=== PATIENT | female | born 1995 | race Caucasian/White ===

== ENCOUNTER → 2016-10-29 | Outpatient (CLI) | payer BC, OTHER | LOC: MW.CHOBGYN 13:36 | PROVIDERS: ATTEND Nurse Practitioner Women's Health | DX: Z32.00 Encounter for pregnancy test, result unknown (principal) | CPT/HCPCS: 36415; 84702 ==

== ENCOUNTER 2017-07-12 11:48 | Inpatient (IN) | payer MEDICAID ==
[2017-07-12] MEDS ORDERED: Nalbuphine 10 MG/1 ML Vial IVPUSH PRN (16:55)
[2017-07-12] MEDS ORDERED: Sodium Chloride 0.9% 2.5 ML Syringe FLUSH PRN (16:55)
[2017-07-12] MEDS ORDERED: Carboprost Tromethamine 250 MCG/1 ML Amp IM PRN (16:55)
[2017-07-12] MEDS ORDERED: Sodium Chloride 0.9% 10 ML Syringe FLUSH PRN (16:55)
[2017-07-12] MEDS ORDERED: Lidocaine 1% 50 ML MDV INJECT PRN (16:55)
[2017-07-12] MEDS ORDERED: Butorphanol 1 MG/ML SDV IVPUSH PRN (16:55)
[2017-07-12] MEDS ORDERED: Water For Irrigation,Sterile 1,000 ML Container IRR PRN (16:55)
[2017-07-12] MEDS ORDERED: Methylergonovine 0.2 MG/1 ML Amp IM PRN (16:55)
[2017-07-12] MEDS ORDERED: Misoprostol 200 MCG Tab PO PRN (16:55)
[2017-07-12] MEDS ORDERED: Oxytocin/0.9 % Sodium Chloride 30 UNIT/500 ML BAG IV SCH ×2 (17:00→21:15)
--- NOTE | 2017-07-12 17:31 | PCM.LDHP ---
L&D History of Present Illness - General Date of Service: 07/12/17 Admit Problem/Dx: Patient Status Order with Admit Dx/Problem 07/12/17 12:22 Patient Status [ADT] Routine 07/12/17 16:55 Patient Status [ADT] Routine Admission Diagnosis/Problem Admission Diagnosis/Problem 07/12/17 17:24 22yo EDC 07/11/2017 40 1/7wks. O+, IR, GBS pos. PCN allergy. Active labor Source of Information: Patient History Limitations: Reports: No Limitations - History of Present Illness Improves with: Reports: None Worsens with: Reports: None Associated Symptoms: Reports: N - Related Data Allergies/Adverse Reactions: Allergies Allergy/AdvReac Type Severity Reaction Status Date / Time amoxicillin Allergy Rash Verified 05/13/16 12:44 Home Medications: Home Meds . 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: Neurological History: Reports: Migraines - Past Surgical History GI Surgical History: Reports: Appendectomy, Cholecystectomy Social & Family History - Family History Family Medical History: Noncontributory - Tobacco Use Smoking Status *Q: Current Every Day Smoker Years of Tobacco use: 7 Packs/Tins Daily: 1 - Recreational Drug Use Recreational Drug Use: No H&P Review of Systems - Review of Systems: Review Of Systems: See Below General: Reports: No Symptoms HEENT: Reports: No Symptoms Pulmonary: Reports: No Symptoms Cardiovascular: Reports: No Symptoms Gastrointestinal: Reports: No Symptoms Genitourinary: Reports: No Symptoms Musculoskeletal: Reports: No Symptoms Skin: Reports: No Symptoms Psychiatric: Reports: No Symptoms Neurological: Reports: No Symptoms Hematologic/Lymphatic: Reports: No Symptoms Immunologic: Reports: No Symptoms L&D Exam - Exam Exam: See Below - Vital Signs Weight: 99.337 kg - OB Specific Fundal Height In cm: 40 Contraction Intensity: Strong Movement: Active Heart Tones: Present Heart Rate (FHR) Variability: Moderate (6-25 bmp) Presentation: Vertex - Exam General: Alert, Oriented, Cooperative HEENT: Hearing Intact Lungs: Normal Respiratory Effort GI/Abdominal Exam: Soft, Non-Tender, No Organomegaly, No Distention (gravid) Rectal Exam: Deferred Genitourinary: Cervical dilitation Back Exam: Full Range of Motion Extremities: Normal Range of Motion, No Pedal Edema, Normal Capillary Refill Skin: Warm, Dry, Intact Neurological: Reflexes Equal Bilateral, Normal Speech, Normal Tone Psychiatric: Alert, Normal Affect, Normal Mood - Problem List (1) Supervision of normal IUP (intrauterine ) in primigravida SNOMED Code(s): 28377015, 011320324, 839462491 ICD Code: Z34.00 - ENCNTR FOR SUPRVSN OF NORMAL FIRST , UNSP TRIMESTER Status: Acute Current Visit: Yes Qualifiers: Trimester: third trimester Qualified Code(s): Z34.03 - Encounter for supervision of normal first , third trimester Problem List Initiated/Reviewed/Updated: Yes Orders Last 24hrs: Active Orders 24 hr Category Date Time Status Patient Status [ADT] Routine ADT 07/12/17 16:55 Active Heart Tones [RC] CONTINUOUS Care 07/12/17 16:55 Active Non Stress Test [RC] PER UNIT ROUTINE Care 07/12/17 12:22 Active Non Stress Test [RC] PER UNIT ROUTINE Care 07/12/17 16:55 Active May Shower [RC] ASDIRECTED Care 07/12/17 16:55 Active Notify Provider [RC] PRN Care 07/12/17 16:55 Active Up ad Indira [RC] ASDIRECTED Care 07/12/17 12:22 Active Up ad Indira [RC] ASDIRECTED Care 07/12/17 16:55 Active Vaginal Exam [RC] Click to Edit Care 07/12/17 12:22 Active Vaginal Exam [RC] PRN Care 07/12/17 16:55 Active Vital Signs [RC] PER UNIT ROUTINE Care 07/12/17 12:22 Active Vital Signs [RC] PER UNIT ROUTINE Care 07/12/17 16:55 Active CBC W/O DIFF,HEMOGRAM [HEME] Routine Lab 07/12/17 16:55 Ordered TYPE AND SCREEN [BBK] Routine Lab 07/12/17 16:55 Ordered Butorphanol [Stadol] Med 07/12/17 16:55 Active 1 mg IVPUSH Q1H PRN Carboprost Tromethamine [Hemabate DS] Med 07/12/17 16:55 Active 250 mcg IM ASDIRECTED PRN Clindamycin Phosphate in D5W [Cleocin in D5W] 900 mg Med 07/12/17 17:00 Active Premix Bag 1 bag IV Q8H Lactated Ringers [Ringers, Lactated] 1,000 ml Med 07/12/17 17:00 Active IV ASDIRECTED Lidocaine 1% [Xylocaine 1%] Med 07/12/17 16:55 Active 50 ml INJECT .ONCE PRN Methylergonovine [Methergine] Med 07/12/17 16:55 Active 0.2 mg IM ASDIRECTED PRN Misoprostol [Cytotec] Med 07/12/17 16:55 Active 200 mcg PO .ONCE PRN Nalbuphine [Nubain] Med 07/12/17 16:55 Active 10 mg IVPUSH Q1H PRN Oxytocin/0.9 % Sodium Chloride [Oxytocin 30 Unit/500 ML Med 07/12/17 17:00 Active -NS] 30 unit in 500 ml IV TITRATE Sodium Chloride 0.9% [Saline Flush] Med 07/12/17 16:55 Active 10 ml FLUSH ASDIRECTED PRN Sodium Chloride 0.9% [Saline Flush] Med 07/12/17 16:55 Active 2.5 ml FLUSH ASDIRECTED PRN Water For Irrigation,Sterile [Sterile Water for Med 07/12/17 16:55 Active Irrigation] 1,000 ml IRR ASDIRECTED PRN Scalp Electrode [WOMSER] Per Unit Routine Oth 07/12/17 16:55 Ordered Peripheral IV Insertion Adult [OM.PC] Routine Oth 07/12/17 16:55 Ordered Resuscitation Status Routine Resus Stat 07/12/17 12:22 Ordered Medication Orders Butorphanol Tartrate (Stadol) 1 mg IVPUSH Q1H PRN PRN Reason: Pain Carboprost Tromethamine (Hemabate Ds) 250 mcg IM ASDIRECTED PRN PRN Reason: Post Hemorrhage Lactated Ringer's (Ringers, Lactated) 1,000 mls @ 150 mls/hr IV ASDIRECTED BRI Oxytocin/Sodium Chloride (Oxytocin 30 Unit/500 Ml-Ns) 30 unit in 500 mls @ 999 mls/hr IV TITRATE BRI Clindamycin Phosphate 900 mg/ (Premix) 50 mls @ 100 mls/hr IV Q8H BRI Lidocaine HCl (Xylocaine 1%) 50 ml INJECT .ONCE PRN PRN Reason: Laceration repair Methylergonovine Maleate (Methergine) 0.2 mg IM ASDIRECTED PRN PRN Reason: Post Hemorrhage Misoprostol (Cytotec) 200 mcg PO .ONCE PRN PRN Reason: Post Hemorrhage Nalbuphine HCl (Nubain) 10 mg IVPUSH Q1H PRN PRN Reason: Pain (severe 7-10) Sodium Chloride (Saline Flush) 10 ml FLUSH ASDIRECTED PRN PRN Reason: Keep Vein Open Sodium Chloride (Saline Flush) 2.5 ml FLUSH ASDIRECTED PRN PRN Reason: Keep Vein Open Sterile Water (Sterile Water For Irrigation) 1,000 ml IRR ASDIRECTED PRN PRN Reason: delivery Assessment/Plan Comment:: Labor A: 22yo EDC 07/11/2017 40 1/7wks. O+, IR, GBS pos. PCN allergy. Active labor P: Admit, epidural prn, treat GBS with clindomycin due to PCN allergy. Anticipate . Dr Merritt updated on pt status
[2017-07-12] MEDS: Lactated Ringers 1,000 ML IV SCH ×2 (17:34→20:43)
[2017-07-12] MEDS: Clindamycin Phosphate in D5W 900 MG in Premix Bag 1 BAG IV SCH ×2 (17:34)
[2017-07-12] MEDS ORDERED: Ropivacaine 0.2% 2 MG/ML 20 ML SDV ONE (20:43)
[2017-07-12] MEDS ORDERED: fentaNYL 100 MCG/2 ML SDV ONE (20:43)
[2017-07-12] MEDS ORDERED: Ropivacaine 100 ML ONE (20:43)
[2017-07-12] MEDS ORDERED: Terbutaline 1 MG/ML SDV SUBCUT PRN (21:06)
--- NOTE | 2017-07-12 21:18 | PCM.PREANE ---
Preanesthetic Assessment - Procedure Proposed Procedure: labor epidural - Anesthesia/Transfusion/Family Hx Anesthesia History: Prior Anesthesia Without Reaction (lap mike, appendectomy) Family History of Anesthesia Reaction: No Transfusion History: No Prior Transfusion(s) - Review of Systems General: No Symptoms Pulmonary: No Symptoms Cardiovascular: No Symptoms Gastrointestinal: No Symptoms Neurological: No Symptoms Other: Reports: None - Physical Assessment NPO Status Date: 07/12/17 NPO Status Time: 21:17 (cl liq) Height: 1.6 m Weight: 99.337 kg ASA Class: 2 Mental Status: Alert & Oriented x3 Airway Class: Mallampati = 2 Dentition: Reports: Normal Dentition Thyro-Mental Finger Breadths: 3 Mouth Opening Finger Breadths: 3 ROM/Head Extension: Full Lungs: Clear to Auscultation, Normal Respiratory Effort Cardiovascular: Regular Rate, Regular Rhythm - Lab Values: Laboratory Last Values WBC 11.89 K/uL (4.0-11.0) H 07/12/17 17:20 RBC 4.09 M/uL (4.30-5.90) L 07/12/17 17:20 Hgb 12.5 g/dL (12.0-16.0) 07/12/17 17:20 Hct 36.2 % (36.0-46.0) 07/12/17 17:20 MCV 88.5 fL (80.0-98.0) 07/12/17 17:20 MCH 30.6 pg (27.0-32.0) 07/12/17 17:20 MCHC 34.5 g/dL (31.0-37.0) 07/12/17 17:20 RDW Std Deviation 42.2 fl (28.0-62.0) 07/12/17 17:20 RDW Coeff of Humza 13 % (11.0-15.0) 07/12/17 17:20 Plt Count 186 K/uL (150-400) 07/12/17 17:20 MPV 11.10 fL (7.40-12.00) 07/12/17 17:20 Nucleated RBC % 0.0 /100WBC 07/12/17 17:20 Nucleated RBCs # 0 K/uL 07/12/17 17:20 Blood Type O POSITIVE 07/12/17 17:20 Antibody Screen NEGATIVE 07/12/17 17:20 - Allergies Allergies/Adverse Reactions: Allergies Allergy/AdvReac Type Severity Reaction Status Date / Time amoxicillin Allergy Rash Verified 05/13/16 12:44 - Blood Blood Available: Yes Product(s) Available: PRBC - Anesthesia Plan Pre-Op Medication Ordered: None - Acknowledgements Anesthesia Type Planned: Epidural Pt an Appropriate Candidate for the Planned Anesthesia: Yes Alternatives and Risks of Anesthesia Discussed w Pt/Guardian: Yes Pt/Guardian Understands and Agrees with Anesthesia Plan: Yes PreAnesthesia Questionnaire Gastrointestinal History: Reports: Cholelithiasis Genitourinary History: Reports: None 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 [No Known Home Meds] 01/21/16 [History] - CURRENT (IN HOUSE) MEDS Current Meds: Current Medications Butorphanol Tartrate (Stadol) 1 mg IVPUSH Q1H PRN PRN Reason: Pain Carboprost Tromethamine (Hemabate Ds) 250 mcg IM ASDIRECTED PRN PRN Reason: Post Hemorrhage Lactated Ringer's (Ringers, Lactated) 1,000 mls @ 150 mls/hr IV ASDIRECTED [facility] Last Admin: 07/12/17 20:43 Dose: 150 mls/hr Oxytocin/Sodium Chloride (Oxytocin 30 Unit/500 Ml-Ns) 30 unit in 500 mls @ 999 mls/hr IV TITRATE BRI Clindamycin Phosphate 900 mg/ (Premix) 50 mls @ 100 mls/hr IV Q8H [facility] Last Admin: 07/12/17 17:34 Dose: 100 mls/hr Oxytocin/Sodium Chloride (Oxytocin 30 Unit/500 Ml-Ns) 30 unit in 500 mls @ 2 mls/hr IV TITRATE BRI; 2 MUNITS/MIN PRN Reason: Protocol Lidocaine HCl (Xylocaine 1%) 50 ml INJECT .ONCE PRN PRN Reason: Laceration repair Methylergonovine Maleate (Methergine) 0.2 mg IM ASDIRECTED PRN PRN Reason: Post Hemorrhage Misoprostol (Cytotec) 200 mcg PO .ONCE PRN PRN Reason: Post Hemorrhage Nalbuphine HCl (Nubain) 10 mg IVPUSH Q1H PRN PRN Reason: Pain (severe 7-10) Sodium Chloride (Saline Flush) 10 ml FLUSH ASDIRECTED PRN PRN Reason: Keep Vein Open Sodium Chloride (Saline Flush) 2.5 ml FLUSH ASDIRECTED PRN PRN Reason: Keep Vein Open Sterile Water (Sterile Water For Irrigation) 1,000 ml IRR ASDIRECTED PRN PRN Reason: delivery Terbutaline Sulfate (Brethine) 0.25 mg SUBCUT ASDIRECTED PRN PRN Reason: Tacysystole Discontinued Medications Fentanyl (Sublimaze) Confirm Administered Dose 300 mcg .ROUTE .STK-MED ONE Stop: 07/12/17 20:44 Ropivacaine (Naropin 0.2%) Confirm Administered Dose 100 mls @ as directed .ROUTE .STK-MED ONE Stop: 07/12/17 20:44 Ropivacaine (Naropin 0.2%) Confirm Administered Dose 20 ml .ROUTE .STK-MED ONE Stop: 07/12/17 20:44
--- NOTE | 2017-07-12 21:20 | PCM.PRNOTE ---
- Free Text/Narrative Note: asked to place epidural for labor pain. Pt identified and plan discussed. discussed risks and expectations including nerve pain, nerve damage, bleeding and unsuccessful epidural placement. Pt agrees to proceed. sitting up sterile betadine prep x 3 with sterile drape. 1% lidocaine injected SQ. #17 touhy advanced with ROBERT saline at L4. pt crying uncontrollably with any movement. difficult to assess what she is feeling. Needle advanced to approximately 6 cm. no discernable paresthesia or heme. catheter placed easily to 12 cm at skin. test dose 3 ml 1.5% lidocaine with epinephrine 1:200,000. neg. reaction. pt supine, bolus with ropivicaine 0.2% and fentanyl 100 mcg. total of 5 ml given in divided doses. Pt contractions far apart, but level noted to be t 10 bilat. PCEA started at 8 ml/hr of 0.2% ropivicaine and fentanyl 2 mcg/ml. bolus dosing set at 6 ml every 15 min with hourly lockout of 32 ml. PCEA education done. pain now 0/10
[2017-07-13] MEDS: Clindamycin Phosphate in D5W 900 MG in Premix Bag 1 BAG IV SCH ×4 (01:58→09:50)
[2017-07-13] MEDS ORDERED: Ropivacaine 100 ML ONE (07:52)
[2017-07-13] MEDS ORDERED: Lanolin 100% Cream 7 GM Tube TOP PRN (12:43)
[2017-07-13] MEDS ORDERED: Witch Hazel Medicated Pads 40/Jar TOP PRN (12:43)
[2017-07-13] MEDS ORDERED: Acetaminophen 500 MG Tab PO PRN (12:43)
[2017-07-13] MEDS ORDERED: Docusate Sodium 100 MG Cap PO PRN (12:43)
[2017-07-13] MEDS ORDERED: oxyCODONE 5 MG Tab PO PRN (12:43)
[2017-07-13] MEDS ORDERED: Benzocaine/Menthol 20%-0.5% Spray 78 GM Cannister TOP PRN (12:43)
[2017-07-13] MEDS ORDERED: Ibuprofen 400 MG Tab PO PRN (12:43)
[2017-07-13] MEDS ORDERED: Bisacodyl 10 MG Supp RECTAL PRN (12:43)
--- NOTE | 2017-07-13 12:50 | PCM.DEL ---
L & D Note - General Info Date of Service: 07/13/17 Mother's Due Date: 07/11/17 - Delivery Note Labor: Spontaneous Delivery Outcome: Livebirth Infant Delivery Method: Spontaneous Vaginal Delivery-Single Presentation: Vertex Nuchal Cord: None Anesthesia Type: Epidural Amniotic Fluid Description: Clear Episiotomy Type: None Laceration: Vaginal Suture type: Vicryl Suture size: 3-0 Placenta: Intact, Spontaneous Cord: 3 Vessels Resuscitation Needed: No [place]: Stimulated, Warmed, Belva Used, Warmer Used Score 1 min: 7 Score 5 min: 8 - General Info Date of Service: 07/13/17 Admission Dx/Problem (Free Text): Patient Status Order with Admit Dx/Problem 07/12/17 12:22 Patient Status [ADT] Routine 07/12/17 16:55 Patient Status [ADT] Routine Admission Diagnosis/Problem Admission Diagnosis/Problem 07/12/17 17:24 22yo EDC 07/11/2017 40 1/7wks. O+, IR, GBS pos. PCN allergy. Active labor Subjective Update: 22 year old female that is now a following of viable female at term weighing 8lbs 5oz. No complications during delivery. scores were 7 and 8 at 1 and 5 minutes respectively. Mother was GBS + and treated with multiple doses of IV Clindamycin secondary to a penicillin allergy. Mother was also O+, RI. Functional Status: Reports: Pain Controlled - Review of Systems General: Reports: No Symptoms Pulmonary: Reports: No Symptoms Cardiovascular: Reports: No Symptoms Neurological: Reports: No Symptoms Psychiatric: Reports: No Symptoms - Patient Data Weight - Most Recent: 219 lb Lab Results Last 24 Hours: Laboratory Results - last 24 hr 07/12/17 07/12/17 Range/Units 17:20 17:20 WBC 11.89 H (4.0-11.0) K/uL RBC 4.09 L (4.30-5.90) M/uL Hgb 12.5 (12.0-16.0) g/dL Hct 36.2 (36.0-46.0) % MCV 88.5 (80.0-98.0) fL MCH 30.6 (27.0-32.0) pg MCHC 34.5 (31.0-37.0) g/dL RDW Std Deviation 42.2 (28.0-62.0) fl RDW Coeff of Humza 13 (11.0-15.0) % Plt Count 186 (150-400) K/uL MPV 11.10 (7.40-12.00) fL Nucleated RBC % 0.0 /100WBC Nucleated RBCs # 0 K/uL Blood Type O POSITIVE Antibody Screen NEGATIVE Med Orders - Current: Current Medications Discontinued Medications Butorphanol Tartrate (Stadol) 1 mg IVPUSH Q1H PRN PRN Reason: Pain Carboprost Tromethamine (Hemabate Ds) 250 mcg IM ASDIRECTED PRN PRN Reason: Post Hemorrhage Fentanyl (Sublimaze) Confirm Administered Dose 300 mcg .ROUTE .ST-MED ONE Stop: 07/12/17 20:44 Lactated Ringer's (Ringers, Lactated) 1,000 mls @ 150 mls/hr IV ASDIRECTED BRI Last Admin: 07/12/17 20:43 Dose: 150 mls/hr Oxytocin/Sodium Chloride (Oxytocin 30 Unit/500 Ml-Ns) 30 unit in 500 mls @ 999 mls/hr IV TITRATE BRI Clindamycin Phosphate 900 mg/ (Premix) 50 mls @ 100 mls/hr IV Q8H BRI Last Admin: 07/13/17 09:50 Dose: 100 mls/hr Ropivacaine (Naropin 0.2%) Confirm Administered Dose 100 mls @ as directed .ROUTE .STK-MED ONE Stop: 07/12/17 20:44 Oxytocin/Sodium Chloride (Oxytocin 30 Unit/500 Ml-Ns) 30 unit in 500 mls @ 2 mls/hr IV TITRATE BRI; 2 MUNITS/MIN PRN Reason: Protocol Last Titration: 07/13/17 08:23 Dose: 8 munits/min, 8 mls/hr Ropivacaine (Naropin 0.2%) Confirm Administered Dose 100 mls @ as directed .ROUTE .ST-MED ONE Stop: 07/13/17 07:53 Lidocaine HCl (Xylocaine 1%) 50 ml INJECT .ONCE PRN PRN Reason: Laceration repair Methylergonovine Maleate (Methergine) 0.2 mg IM ASDIRECTED PRN PRN Reason: Post Hemorrhage Misoprostol (Cytotec) 200 mcg PO .ONCE PRN PRN Reason: Post Hemorrhage Nalbuphine HCl (Nubain) 10 mg IVPUSH Q1H PRN PRN Reason: Pain (severe 7-10) Ropivacaine (Naropin 0.2%) Confirm Administered Dose 20 ml .ROUTE .STK-MED ONE Stop: 07/12/17 20:44 Sodium Chloride (Saline Flush) 10 ml FLUSH ASDIRECTED PRN PRN Reason: Keep Vein Open Sodium Chloride (Saline Flush) 2.5 ml FLUSH ASDIRECTED PRN PRN Reason: Keep Vein Open Sterile Water (Sterile Water For Irrigation) 1,000 ml IRR ASDIRECTED PRN PRN Reason: delivery Terbutaline Sulfate (Brethine) 0.25 mg SUBCUT ASDIRECTED PRN PRN Reason: Tacysystole - Exam General: Alert, Oriented, Cooperative, No Acute Distress Lungs: Normal Respiratory Effort Cardiovascular: Regular Rate (Female) Exam: Normal Bimanual Exam, Vaginal Tears Extremities: Normal Inspection, Normal Range of Motion Skin: Warm, Dry, Intact Wound/Incisions: Healing Well Neurological: No New Focal Deficit Psy/Mental Status: Alert, Normal Affect, Normal Mood - Problem List & Annotations (1) (normal spontaneous vaginal delivery) SNOMED Code(s): 63574228 Code(s): O80 - ENCOUNTER FOR FULL-TERM UNCOMPLICATED DELIVERY Status: Acute Priority: High Current Visit: Yes - Problem List Review Problem List Initiated/Reviewed/Updated: Yes - My Orders Last 24 Hours: My Active Orders 07/13/17 12:43 Patient Status [ADT] Routine May Shower [RC] ASDIRECTED Up ad Indira [RC] ASDIRECTED Vital Signs [RC] PER UNIT ROUTINE Acetaminophen [Tylenol Extra Strength] 1,000 mg PO Q4H PRN Acetaminophen [Tylenol Extra Strength] 500 mg PO Q4H PRN Benzocaine/Menthol [Dermoplast Pain Relief 20%-0.5% [place]] 78 gm TOP ASDIRECTED PRN Bisacodyl [Dulcolax] 10 mg RECTAL .ONCE PRN Docusate Sodium [Colace] 100 mg PO BID PRN Ibuprofen [Motrin] 400 mg PO Q4H PRN Ibuprofen [Motrin] 800 mg PO Q6H PRN Lanolin [Lansinoh HPA] See Dose Instructions TOP ASDIRECTED PRN Witch Adri [Tucks] 1 pad TOP ASDIRECTED PRN oxyCODONE 5 mg PO Q2H PRN Assess Lochia [WOMSER] Per Unit Routine Assess Uterine Involution [WOMSER] Per Unit Routine Peripheral IV Discontinue [OM.PC] Routine Resuscitation Status Routine 07/13/17 Lunch Regular Diet [DIET] - Plan Plan:: Labor A: 22yo EDC 07/11/2017 40 1/7wks. O+, IR, GBS pos. PCN allergy. Active labor P: Admit, epidural prn, treat GBS with clindomycin due to PCN allergy. Anticipate . Dr Merritt updated on pt status Delivery: A: 22 year old female that is now a following of viable female at term weighing 8lbs 5oz. No complications during delivery. scores were 7 and 8 at 1 and 5 minutes respectively. Mother was GBS + and treated with multiple doses of IV Clindamycin secondary to a penicillin allergy. Mother was also O+, RI. was placed on mothers chest immediately following . Mother and left bonding well. P: routine post- care
[2017-07-13] MEDS: Acetaminophen 500 MG Tab PO PRN (12:58)
[2017-07-13] MEDS: Ibuprofen 800 MG Tab PO PRN (20:56)
[2017-07-14] MEDS: Acetaminophen 500 MG Tab PO PRN (02:09)
[2017-07-14] MEDS: Ibuprofen 800 MG Tab PO PRN (06:25)
--- NOTE | 2017-07-14 07:10 | PCM.DCSUM1 ---
Discharge Summary - Hospital Course Free Text/Narrative:: Discharge home in . Follow up in 6 weeks for post exam or sooner if needed. - Discharge Data Discharge Date: 07/14/17 Discharge Disposition: Home, Self-Care 01 Condition: Good - Discharge Diagnosis/Problem(s) (1) Supervision of normal IUP (intrauterine ) in primigravida SNOMED Code(s): 82093555, 330271856, 566141320 ICD Code: Z34.00 - ENCNTR FOR SUPRVSN OF NORMAL FIRST , UNSP TRIMESTER Status: Acute Current Visit: Yes Qualifiers: Trimester: third trimester Qualified Code(s): Z34.03 - Encounter for supervision of normal first , third trimester - Patient Instructions Diet: Usual Diet as Tolerated Activity: As Tolerated, No Strenuous Activities, Rest and Relax Today Driving: May Drive Today Showering/Bathing: May Shower Notify Provider of: Fever, Increased Pain, Swelling and Redness, Nausea and/or Vomiting Other/Special Instructions: Discharge home in infant. Follow up in 6 weeks for post exam or sooner if needed. - Discharge Plan Prescriptions/Med Rec: Ibuprofen [IJD: Ibuprofen] 800 mg PO Q6H PRN #90 tablet PRN Reason: Pain Home Medications: Home Meds Ibuprofen [IJD: Ibuprofen] 800 mg PO Q6H PRN #90 tablet 07/14/17 [Rx] Referrals: [facility] [Outside] Rocio Strauss CNM [Primary Care Provider] - 08/19/17 3:00 pm - General Info Date of Service: 07/14/17 Admission Dx/Problem (Free Text: Patient Status Order with Admit Dx/Problem 07/12/17 12:22 Patient Status [ADT] Routine 07/12/17 16:55 Patient Status [ADT] Routine Admission Diagnosis/Problem Admission Diagnosis/Problem 07/12/17 17:24 22yo EDC 07/11/2017 40 1/7wks. O+, IR, GBS pos. PCN allergy. Active labor Subjective Update: 22 year old female that is now a following of viable female at term weighing 8lbs 5oz. No complications during delivery. scores were 7 and 8 at 1 and 5 minutes respectively. Mother was GBS + and treated with multiple doses of IV Clindamycin secondary to a penicillin allergy. Mother was also O+, RI. Functional Status: Reports: Pain Controlled, Tolerating Diet, Ambulating, Urinating - Review of Systems General: Reports: No Symptoms HEENT: Reports: No Symptoms Pulmonary: Reports: No Symptoms Cardiovascular: Reports: No Symptoms Gastrointestinal: Reports: No Symptoms Genitourinary: Reports: No Symptoms Musculoskeletal: Reports: No Symptoms Skin: Reports: No Symptoms Neurological: Reports: No Symptoms Psychiatric: Reports: No Symptoms - Patient Data Vitals - Most Recent: Last Vital Signs Temp 36.6 C 07/14/17 05:24 Pulse 69 07/14/17 05:24 Resp 15 07/14/17 05:24 BP 115/60 07/14/17 05:24 Pulse Ox 94 L 07/14/17 05:24 Weight - Most Recent: 99.337 kg Med Orders - Current: Current Medications Acetaminophen (Tylenol Extra Strength) 500 mg PO Q4H PRN PRN Reason: Pain Acetaminophen (Tylenol Extra Strength) 1,000 mg PO Q4H PRN PRN Reason: Pain Last Admin: 07/14/17 02:09 Dose: 1,000 mg Benzocaine/Menthol (Dermoplast Pain Relief 20%-0.5% [place]) 78 gm TOP ASDIRECTED PRN PRN Reason: Perineal Comfort Measure Bisacodyl (Dulcolax) 10 mg RECTAL .ONCE PRN PRN Reason: Constipation Docusate Sodium (Colace) 100 mg PO BID PRN PRN Reason: Constipation Last Admin: 07/13/17 15:31 Dose: 100 mg Emollient Ointment (Lansinoh Hpa) 0 gm TOP ASDIRECTED PRN PRN Reason: Sore Nipples Ibuprofen (Motrin) 400 mg PO Q4H PRN PRN Reason: Pain Ibuprofen (Motrin) 800 mg PO Q6H PRN PRN Reason: Pain Last Admin: 07/14/17 06:25 Dose: 800 mg Oxycodone HCl (Oxycodone) 5 mg PO Q2H PRN PRN Reason: Pain Witch Adri (Tucks) 1 pad TOP ASDIRECTED PRN PRN Reason: comfort care Last Admin: 07/13/17 15:32 Dose: 1 applic Discontinued Medications Butorphanol Tartrate (Stadol) 1 mg IVPUSH Q1H PRN PRN Reason: Pain Carboprost Tromethamine (Hemabate Ds) 250 mcg IM ASDIRECTED PRN PRN Reason: Post Hemorrhage Fentanyl (Sublimaze) Confirm Administered Dose 300 mcg .ROUTE .ReserveOut ONE Stop: 07/12/17 20:44 Lactated Ringer's (Ringers, Lactated) 1,000 mls @ 150 mls/hr IV ASDIRECTED BRI Last Admin: 07/12/17 20:43 Dose: 150 mls/hr Oxytocin/Sodium Chloride (Oxytocin 30 Unit/500 Ml-Ns) 30 unit in 500 mls @ 999 mls/hr IV TITRATE BRI Clindamycin Phosphate 900 mg/ (Premix) 50 mls @ 100 mls/hr IV Q8H BRI Last Admin: 07/13/17 09:50 Dose: 100 mls/hr Ropivacaine (Naropin 0.2%) Confirm Administered Dose 100 mls @ as directed .ROUTE .ReserveOut ONE Stop: 07/12/17 20:44 Oxytocin/Sodium Chloride (Oxytocin 30 Unit/500 Ml-Ns) 30 unit in 500 mls @ 2 mls/hr IV TITRATE BRI; 2 MUNITS/MIN PRN Reason: Protocol Last Titration: 07/13/17 08:23 Dose: 8 munits/min, 8 mls/hr Ropivacaine (Naropin 0.2%) Confirm Administered Dose 100 mls @ as directed .ROUTE .ReserveOut ONE Stop: 07/13/17 07:53 Lidocaine HCl (Xylocaine 1%) 50 ml INJECT .ONCE PRN PRN Reason: Laceration repair Methylergonovine Maleate (Methergine) 0.2 mg IM ASDIRECTED PRN PRN Reason: Post Hemorrhage Misoprostol (Cytotec) 200 mcg PO .ONCE PRN PRN Reason: Post Hemorrhage Nalbuphine HCl (Nubain) 10 mg IVPUSH Q1H PRN PRN Reason: Pain (severe 7-10) Ropivacaine (Naropin 0.2%) Confirm Administered Dose 20 ml .ROUTE .ReserveOut ONE Stop: 07/12/17 20:44 Sodium Chloride (Saline Flush) 10 ml FLUSH ASDIRECTED PRN PRN Reason: Keep Vein Open Sodium Chloride (Saline Flush) 2.5 ml FLUSH ASDIRECTED PRN PRN Reason: Keep Vein Open Sterile Water (Sterile Water For Irrigation) 1,000 ml IRR ASDIRECTED PRN PRN Reason: delivery Terbutaline Sulfate (Brethine) 0.25 mg SUBCUT ASDIRECTED PRN PRN Reason: Tacysystole - Exam General: Reports: Alert, Oriented, Cooperative Lungs: Reports: Normal Respiratory Effort GI/Abdominal Exam: Soft, Non-Tender, No Organomegaly, No Distention (Female) Exam: Vaginal Bleeding Rectal (Female) Exam: Deferred Back Exam: Reports: Full Range of Motion Extremities: Normal Range of Motion, Non-Tender, No Pedal Edema, Normal Capillary Refill Skin: Reports: Warm, Dry, Intact Wound/Incisions: Reports: Healing Well Neurological: Reports: No New Focal Deficit, Normal Gait, Normal Speech, Normal Tone Psy/Mental Status: Reports: Alert, Normal Affect, Normal Mood *Q Meaningful Use (DIS) - VTE *Q VTE Criteria *Q: - Stroke *Q Stroke Criteria *Q: - AMI *Q AMI Criteria *Q:
--- NOTE | 2017-07-14 07:29 | PCM48HPAN ---
Post Anesthesia Note - EVALUATION WITHIN 48HRS OF ANESTHETIC Vital Signs in Normal Range: Yes Patient Participated in Evaluation: Yes Respiratory Function Stable: Yes Airway Patent: Yes Cardiovascular Function Stable: Yes Hydration Status Stable: Yes Pain Control Satisfactory: Yes Nausea and Vomiting Control Satisfactory: Yes Mental Status Recovered: Yes
[2017-07-14 18:10] VITALS: BP 104/61
== END 2017-07-14 17:30 | disposition home or self-care (01) | DRG 775 ==
LOC: MW.OBCHECK 11:48 → MW.OB 11:54 → MW.OBCHECK 16:55 → OBSVTOIN 07-13 12:08
PROVIDERS: ADMIT Obstetrics & Gynecology; ATTEND Obstetrics & Gynecology
PROC: 10E0XZZ Delivery of Products of Conception, External Approach (ICD-10-PCS; principal; 2017-07-13)
PROC: 0HQ9XZZ Repair Perineum Skin, External Approach (ICD-10-PCS; 2017-07-13)
PROC: 10907ZC Drainage of Amniotic Fluid, Therapeutic from Products of Conception, Via Natural or Artificial Opening (ICD-10-PCS; 2017-07-13)
DX: O70.0 First degree perineal laceration during delivery (principal); O99.824 Streptococcus B carrier state complicating childbirth; Z3A.40 40 weeks gestation of pregnancy; Z37.0 Single live birth; Z88.0 Allergy status to penicillin
CPT/HCPCS: 36415; 51702; 59025; 59409; 85027; 86850; 86900; 86901; A9270-GY; J2590; J2795; J7120